=== PATIENT | female | born 1985 | race Two or more races ===

== ENCOUNTER 2016-08-05 16:55 | Observation (INO) | payer BC ==
[~2016-08-05] VITALS: Ht 170.2 cm; Wt 86.2 kg
[2016-08-05] MEDS ORDERED: PREN-88 PO (17:46)
== END 2016-08-05 21:00 | disposition home or self-care (01) ==
LOC: L&D 16:55
PROVIDERS: ADMIT Specialist; ATTEND Specialist
DX: O26.893 Other specified pregnancy related conditions, third trimester (principal); Z3A.33 33 weeks gestation of pregnancy; V43.52XA Car driver injured in collision with other type car in traffic accident, initial encounter; Y93.89 Activity, other specified; Y92.89 Other specified places as the place of occurrence of the external cause; Y99.8 Other external cause status
CPT/HCPCS: 76805; 76818; G0378